=== PATIENT | female | born 1945 | race Caucasian/White ===

== ENCOUNTER 2017-05-24 10:53 | Emergency (ER) | payer MEDICARE ==
[2017-05-24] MEDS ORDERED: Albuterol/Ipratropium NEB.SOL* Albuterol 2.5 MG/Ipratropium 0.5 MG 3 ML INH ONE (11:23)
[2017-05-24] MEDS ORDERED: methylPREDNISolone 125 MG* 2 ML VIAL IV ONE (11:23)
[2017-05-24 11:45] LABS: ABS Basophils 0.1 10^3/ul (0-0.2); ABS Eosinophils 0.2 10^3/ul (0-0.6); ABS Lymphocytes 1.9 10^3/ul (1.0-4.8); ABS Monocytes 0.7 10^3/ul (0-0.8); ABS Neutrophils 5.7 10^3/ul (1.5-7.7); ABS Nucleated RBC 0 10^3/ul; Eosinophil % 2.1 % (0-6); Hematocrit 41 % (35-47); Hemoglobin 13.9 g/dl (12.0-16.0); Lymphocyte % 21.8 % (25-47); Mean Corpuscular HGB Conc 33 g/dl (31-36); Mean Corpuscular Hemoglobin 30 pg (27-31); Mean Corpuscular Volume 89 fL (80-97); Mean Platelet Volume 8.2 um3 (7.4-10.4); Nucleated Red Blood Cells % 0; Platelet Count 229 10^3/ul (150-450); Red Blood Count 4.66 10^6/ul (4.0-5.4); Red Cell Distribution Width 13 % (10.5-15); White Blood Count 8.5 10^3/ul (3.5-10.8)
[2017-05-24 11:52] LABS: INR 0.86 (0.77-1.02)
--- NOTE | 2017-05-24 12:04 | RAD ---
Indication: Chest congestion for one week. Increased shortness of breath. History of uterine cancer. Comparison: No relevant prior exams available on the [facility] for comparison. Technique: Upright AP 1148 hours Report: Clear lungs and pleural spaces. Negative for pneumothorax. The heart, pulmonary vasculature, and mediastinal contours are unremarkable. Gallbladder fossa level surgical clips. IMPRESSION: No evidence for pneumonia. Negative exam.
[2017-05-24 12:20] LABS: EGFR Non-African American 82.7 (>60)
[2017-05-24] MEDS ORDERED: Iodixanol* (CONTRAST) 320 MG/ML 100 ML SDV IV ONE (13:03)
--- NOTE | 2017-05-24 13:50 | RAD ---
INDICATION: Shortness of breath. History of uterine cancer. COMPARISON: May 24, 2017 chest radiograph. March 27, [address] and November 12, [address] TECHNIQUE: Multidetector CT images were obtained from the lung apices to the upper abdomen with 80 mL Visipaque 320 IV contrast. Pulmonary angiogram protocol. Multiplanar reformation including with maximum intensity projection. REPORT: 7 mm maximum dimension subpleural nodule at the posterior basal segment of the LEFT lower lobe just above the diaphragm is increased from 3 mm on the November 12, [address] The lungs and pleural spaces are otherwise clear. Negative for thoracic lymphadenopathy, cardiomegaly, pericardial effusion. Normal diameter thoracic aorta. Negative for aortic dissection. Mild atherosclerotic plaque. Motion artifact moderately degrades quality of the CT pulmonary angiogram. No filling defects are identified from the main to the segmental and where visible the subsegmental pulmonary arteries to indicate pulmonary embolism. Images through the upper abdomen are remarkable for prior cholecystectomy likely accounting for unchanged mild intra and extrahepatic biliary dilatation. Multilevel thoracic degenerative spondylosis. IMPRESSION: 1. Motion artifact moderately degrades quality of the CT pulmonary angiogram. No filling defects are identified from the main to the segmental and where visible the subsegmental pulmonary arteries to indicate pulmonary embolism. 2. Follow-up chest CT without contrast suggested for reassessment of the pulmonary nodule at the central aspect of the posterior basal segment of the LEFT lower lobe just above the diaphragm. At this time the lesion is likely too small to accurately assessed with PET CT. The location would be difficult for CT-guided biopsy. 3. Negative for thoracic lymphadenopathy.
--- NOTE | 2017-05-24 14:36 | ED ---
Lance Nieto Julia, scribed for Uday Parisi on 05/24/17 at 1127 . Respiratory - HPI Summary HPI Summary: This patient is a 72 year old F presenting to [facility] with a chief complaint of SOB for the past week. Patient reports nasal congestion. Patient denies fever, cough, CP, edema, and abdominal pain. She states that she has been wearing her CPAP machine throughout the day for the past week. She reports short lived relief from antihistamines. Patient has a history of PNA. Patient has hx of dystonia, and states she has not had a neurologist for the past six months. - History of Current Complaint Chief Complaint: EDShortnessOfBreath Stated Complaint: SOB-DR SENT Time Seen by Provider: 05/24/17 11:16 Hx Obtained From: Patient Onset/Duration: Gradual Onset, Lasting Weeks Timing: Constant Pain Intensity: 0 Character: Wheezing Alleviating Factor(s): Other - anti-histamines Associated Signs and Symptoms: SOB, Nasal Congestion - Allergy/Home Medications Allergies/Adverse Reactions: Allergies Allergy/AdvReac Type Severity Reaction Status Date / Time No Known Allergies Allergy Verified 11/13/14 13:33 Home Medications: Home Medications Cholecalciferol (Vitamin D3) [Vitamin D3] 1,000 unit PO DAILY 05/24/17 [History Confirmed 05/24/17] Fluticasone HFA 44 mcg(NF) [Flovent Hfa 44 mcg(NF)] 2 puff INH BID 05/24/17 [ History Confirmed 05/24/17] Furosemide TAB* [Lasix TAB*] 20 mg PO DAILY 05/24/17 [History Confirmed 05/24/17 ] Levothyroxine TAB* [Synthroid TAB*] 125 mcg PO DAILY 05/24/17 [History Confirmed 05/24/17] Losartan TAB* [Cozaar TAB*] 100 mg PO DAILY 05/24/17 [History Confirmed 05/24/17 ] Mometasone Furoate [Elocon] 0.1 % TOPICAL BID PRN 05/24/17 [History Confirmed ] Multivitamin [Daily Multiple Vitamins] 1 tab PO DAILY 05/24/17 [History Confirmed 05/24/17] Sertraline* [Zoloft*] 100 mg PO DAILY 05/24/17 [History Confirmed 05/24/17] amLODIPine TAB* [Norvasc 5 mg TAB*] 5 mg PO DAILY 05/24/17 [History Confirmed ] PMH/Surg Hx/FS Hx/Imm Hx Endocrine/Hematology History: Reports: Hx Diabetes Respiratory History: Reports: Other Respiratory Problems/Disorders - sob with exertion GI History: Reports: Other GI Disorders - hx ulcer Musculoskeletal History: Reports: Other Musculoskeletal History - osteo arthritis Neurological History: Reports: Other Neuro Impairments/Disorders - dystonia - Cancer History Cancer Type, Location and Year: endometrial Hx Chemotherapy: No - Uterine Cancer Hx Radiation Therapy: No - Surgical History Surgery Procedure, Year, and Place: hysterectomy/jossue/tonsils Infectious Disease History: No Infectious Disease History: Denies: Traveled Outside the [place] in Last 30 Days - Social History Alcohol Use: None Hx Tobacco Use: No Smoking Status (MU): Never Smoked Tobacco Review of Systems Negative: Fever Positive: Nasal Discharge - congestion Negative: Chest Pain Positive: Shortness Of Breath. Negative: Cough Negative: Abdominal Pain Negative: Edema All Other Systems Reviewed And Are Negative: Yes Physical Exam - Summary Physical Exam Summary: Appearance: Well appearing, no pain distress Skin: warm, dry, reflects adequate perfusion Head/face: normal Eyes: EOMI, FRANCOIS ENT: normal Neck: supple, non-tender Respiratory: breath sounds present, occasional wheezes bilaterally, poor air entry bilaterally Cardiovascular: RRR, pulses symmetrical Abdomen: non-tender, soft Bowel: present Musculoskeletal: normal, strength/ROM intact Neuro: sensory motor intact, A&Ox3, involuntary head movement Triage Information Reviewed: Yes Vital Signs On Initial Exam: Initial Vitals Temp Pulse Resp BP Pulse Ox 97.7 F 100 26 129/70 93 05/24/17 10:59 05/24/17 10:59 05/24/17 10:59 05/24/17 10:59 05/24/17 10:59 Vital Signs Reviewed: Yes Diagnostics - Vital Signs Vital Signs Temp Pulse Resp BP Pulse Ox 05/24/17 10:59 97.7 F 100 26 129/70 93 - Laboratory Lab Results: Lab Results 05/24/17 05/24/17 05/24/17 Range/Units 11:30 11:30 11:30 WBC 8.5 (3.5-10.8) 10^3/ul RBC 4.66 (4.0-5.4) 10^6/ul Hgb 13.9 (12.0-16.0) g/dl Hct 41 (35-47) % MCV 89 (80-97) fL MCH 30 (27-31) pg MCHC 33 (31-36) g/dl RDW 13 (10.5-15) % Plt Count 229 (150-450) 10^3/ul MPV 8.2 (7.4-10.4) um3 Neut % (Auto) 67.4 (38-83) % Lymph % (Auto) 21.8 L (25-47) % [place] % (Auto) 8.1 H (0-7) % Eos % (Auto) 2.1 (0-6) % Baso % (Auto) 0.6 (0-2) % Absolute Neuts (auto) 5.7 (1.5-7.7) 10^3/ul Absolute Lymphs (auto) 1.9 (1.0-4.8) 10^3/ul Absolute Monos (auto) 0.7 (0-0.8) 10^3/ul Absolute Eos (auto) 0.2 (0-0.6) 10^3/ul Absolute Basos (auto) 0.1 (0-0.2) 10^3/ul Absolute Nucleated RBC 0 10^3/ul Nucleated RBC % 0 INR (Anticoag Therapy) 0.86 (0.77-1.02) APTT 29.0 (26.0-36.3) seconds D-Dimer, Quantitative 322 H (Less Than 230) ng/mL Patient Temperature ABG pH (7.35-7.45) ABG pH (Temp Correct) ABG pCO2 (35-45) mmHg ABG pCO2 (Temp Corrct ABG pO2 (80-100) mmHg ABG pO2 (Temp Correct ABG HCO3 (19-31) mmol/L ABG O2 Saturation (95-98) % ABG Base Excess (-2.0-2.0) Respiration Rate O2 Delivery Device Ventilator Type Vent Mode FiO2 Inspiratory Time PEEP Pressure Support Pressure Control EPAP IPAP BiPAP Sodium (139-145) mmol/L Potassium (3.5-5.0) mmol/L Chloride (101-111) mmol/L Carbon Dioxide (22-32) mmol/L Anion Gap (2-11) mmol/L BUN (6-24) mg/dL Creatinine (0.51-0.95) mg/dL Est GFR ( Amer) (>60) Est GFR (Non-Af Amer) (>60) BUN/Creatinine Ratio (8-20) Glucose (70-100) mg/dL Lactic Acid (0.5-2.0) mmol/L Calcium (8.6-10.3) mg/dL Total Bilirubin (0.2-1.0) mg/dL AST (13-39) U/L ALT (7-52) U/L Alkaline Phosphatase (34-104) U/L Troponin I (<0.04) ng/mL B-Natriuretic Peptide 17 ( - 100) pg/mL Total Protein (6.4-8.9) g/dL Albumin (3.2-5.2) g/dL Globulin (2-4) g/dL Albumin/Globulin Ratio (1-3) 05/24/17 05/24/17 05/24/17 Range/Units 11:30 11:30 12:15 WBC (3.5-10.8) 10^3/ul RBC (4.0-5.4) 10^6/ul Hgb (12.0-16.0) g/dl Hct (35-47) % MCV (80-97) fL MCH (27-31) pg MCHC (31-36) g/dl RDW (10.5-15) % Plt Count (150-450) 10^3/ul MPV (7.4-10.4) um3 Neut % (Auto) (38-83) % Lymph % (Auto) (25-47) % [place] % (Auto) (0-7) % Eos % (Auto) (0-6) % Baso % (Auto) (0-2) % Absolute Neuts (auto) (1.5-7.7) 10^3/ul Absolute Lymphs (auto) (1.0-4.8) 10^3/ul Absolute Monos (auto) (0-0.8) 10^3/ul Absolute Eos (auto) (0-0.6) 10^3/ul Absolute Basos (auto) (0-0.2) 10^3/ul Absolute Nucleated RBC 10^3/ul Nucleated RBC % INR (Anticoag Therapy) (0.77-1.02) APTT (26.0-36.3) seconds D-Dimer, Quantitative (Less Than 230) ng/mL Patient Temperature Not Reportable ABG pH 7.37 (7.35-7.45) ABG pH (Temp Correct) Not Reportable ABG pCO2 55 H (35-45) mmHg ABG pCO2 (Temp Corrct Not Reportable ABG pO2 175 H (80-100) mmHg ABG pO2 (Temp Correct Not Reportable ABG HCO3 28.8 (19-31) mmol/L ABG O2 Saturation 99.7 H (95-98) % ABG Base Excess 5.0 H (-2.0-2.0) Respiration Rate Not Reportable O2 Delivery Device neb Ventilator Type Not Reportable Vent Mode Not Reportable FiO2 8 Inspiratory Time Not Reportable PEEP Not Reportable Pressure Support Not Reportable Pressure Control Not Reportable EPAP Not Reportable IPAP Not Reportable BiPAP Not Reportable Sodium 135 L (139-145) mmol/L Potassium 3.7 (3.5-5.0) mmol/L Chloride 99 L (101-111) mmol/L Carbon Dioxide 27 (22-32) mmol/L Anion Gap 9 (2-11) mmol/L BUN 12 (6-24) mg/dL Creatinine 0.70 (0.51-0.95) mg/dL Est GFR ( Amer) 106.4 (>60) Est GFR (Non-Af Amer) 82.7 (>60) BUN/Creatinine Ratio 17.1 (8-20) Glucose 124 H (70-100) mg/dL Lactic Acid 0.8 (0.5-2.0) mmol/L Calcium 9.3 (8.6-10.3) mg/dL Total Bilirubin 0.50 (0.2-1.0) mg/dL AST 17 (13-39) U/L ALT 12 (7-52) U/L Alkaline Phosphatase 64 (34-104) U/L Troponin I 0.00 (<0.04) ng/mL B-Natriuretic Peptide ( - 100) pg/mL Total Protein 7.4 (6.4-8.9) g/dL Albumin 4.1 (3.2-5.2) g/dL Globulin 3.3 (2-4) g/dL Albumin/Globulin Ratio 1.2 (1-3) Result Diagrams: 05/24/17 11:30 05/24/17 11:30 Lab Statement: Any lab studies that have been ordered have been reviewed, and results considered in the medical decision making process. - Radiology CXR Radiology Interpretation Completed By: Radiologist - No evidence for pneumonia. Negative exam. ED Physician has reviewed this report. - CT Chest CT Interpretation Completed By: Radiologist - 1. Motion artifact moderately degrades quality of the CT pulmonary angiogram. No filling defects are identified from the main to the segmental and where visible the subsegmental pulmonary arteries to indicate pulmonary embolism. 2. Follow-up chest CT without contrast suggested for reassessment of the pulmonary nodule at the central aspect of the posterior basal segment of the LEFT lower lobe just above the diaphragm. At this time the lesion is likely too small to accurately assessed with PET CT. The location would be difficult for CT-guided biopsy. 3. Negative for thoracic lymphadenopathy. ED Physician has reviewed this report. - EKG 1135 Cardiac Rate: NL - at 82 BPM EKG Rhythm: Sinus Rhythm EKG Interpretation: no acute changes Re-Evaluation - Re-Evaluation 1 Re-Evaluation Time: 13:55 Change: Improved - Pt feels better Disposition - Course Course Of Treatment: Patient presents with SOB for the past week. Patient reports nasal congestion. Patient denies fever, cough, CP, edema, and abdominal pain. She states that she has been wearing her CPAP machine throughout the day for the past week. An EKG and CXR are of no acute concern. A Chest CT is of no acute conern. Bloodwork is obtained. ABG is performed revealing hypercarbia. Patient is given nebulizer treatment and Solu-Medol. Patient's symptoms improved while in ED. Admission was recomended to the patient, but pt refused. She is instructed to follow up with her primary care physician. - Differential Dx - Cardiopulmonary Differential Diagnoses - Cardiopulmonary: Bronchitis, Exacerbation Of COPD, Other - pneumonia - Diagnoses Provider Diagnoses: COPD exacerbation, Bronchitis Discharge - Sign-Out/Discharge Documenting (check all that apply): Discharge - Discharge Plan Condition: Stable Disposition: HOME Prescriptions: Azithromycin TAB* [Zithromax TAB (Z-CHAO) 250 mg #6 tabs] 2 tab PO .TODAY, THEN 1 DAILY #1 chao predniSONE TAB* [Deltasone TAB*] 50 mg PO ONCE #5 tab Patient Education Materials: Acute Bronchitis (ED), COPD (Chronic Obstructive Pulmonary Disease) (ED) Referrals: Gela Padgett MD [Primary Care Provider] - 3 Days (Follow up with your primary care physician within three days.) - Billing Disposition and Condition Condition: STABLE Disposition: HOME The documentation as recorded by the Lance chambers Julia accurately reflects the service I personally performed and the decisions made by , Uday Parisi.
[2017-05-24 14:51] VITALS: BP 130/50
== END 2017-05-24 14:28 | disposition home or self-care (01) ==
LOC: ED 10:53
DX: J44.1 Chronic obstructive pulmonary disease with (acute) exacerbation (principal); J40 Bronchitis, not specified as acute or chronic; Z79.899 Other long term (current) drug therapy
CPT/HCPCS: 36415; 36600; 71045; 71275; 80053; 82803; 83605; 83880; 84484; 85025; 85379; 85610; 85730; 93005; 94640; 96374; 99282; A9270-GY; J2930; Q9967